=== PATIENT | female | born 1990 | race Caucasian/White ===

== ENCOUNTER 2019-05-28 13:26 | Inpatient (IN) | payer SELFPAY ==
[2019-05-28 13:34] VITALS: BP 106/69; PULSE 70; RESP 17; TEMP 36.4; O2SAT 98; BMI 28.1
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
[2019-05-28 14:06] LABS: Basophils % 0.5 %; Eosinophils # 0.1 10^3/uL (0.0-0.8); Eosinophils % 0.6 %; Hematocrit 43.9 % (37.0-47.0); Hemoglobin 14.1 g/dL (11.5-15.3); Lymphocytes # 2.4 10^3/uL (0.8-4.8); Lymphocytes % 27.4 %; Mean Corpuscular HGB Conc 32.1 g/dL (30.0-36.0); Mean Corpuscular Hemoglobin 30.7 pg (28.0-34.0); Mean Corpuscular Volume 95.6 fL (81-99); Mean Platelet Volume 10.5 fL (7.4-10.4); Monocytes # 0.5 10^3/uL (0.2-0.9); Monocytes % 5.8 %; Neutrophils # 5.6 10^3/uL (1.8-7.7); Neutrophils % 65.2 %; Nucleated Red Blood Cells % 0 %; Platelet Count 300 10^3/cmm (130-400); Red Blood Count 4.59 10^6/uL (4.1-5.3); Red Cell Distribution Width 12.8 % (12.1-15.1); White Blood Count 8.6 10^3/uL (4.0-10.0)
[2019-05-28 14:36] LABS: Alanine Aminotransferase 15 U/L (0-33); Albumin Level 4.3 g/dL (3.5-5.2); Alkaline Phosphatase 72 IU/L (35-105); Aspartate Amino Transferase 14 U/L (0-32); Blood Urea Nitrogen 10 mg/dL (6-20); Calcium 9.6 mg/dL (8.5-10.5); Carbon Dioxide 24 mmol/L (22-29); Chloride 102 mmol/L (98-107); Globulin 2.9 g/dL (1.3-4.6); Glomerular Filtration Rate 98.9 mL/min (90-130); Glucose 91 mg/dL (65-115); Osmolality Calculated 278 mOsm/kg (285-295); Sodium 136 mmol/L (136-145); Thyroid Stimulating Hormone 0.72 uIU/mL (0.27-4.20); Total Bilirubin 0.3 mg/dL (0.15-1.2); Total Protein 7.2 g/dL (6.6-8.7)
[2019-05-28 14:59] LABS: Acetaminophen < 5.0 ug/mL (10-30); Alcohol Level < 10 mg/dL (0-10); Salicylate < 0.3 mg/dL (3-10)
[2019-05-28 15:07] VITALS: BP 104/70; PULSE 59; RESP 16; O2SAT 99
[2019-05-28 15:17] LABS: Add Urine Microscopic? NO
[2019-05-28 15:32] LABS: Urine Appearance Clear (CLEAR); Urine Color Yellow (Yellow); pH Urine 6 (5-7)
[2019-05-28 15:33] LABS: Bilirubin Urine Neg (NEGATIVE); Blood Urine Neg (Negative); Glucose Urine UA Norm (Normal); HCG Qualitative Urine. Negative (Negative); Ketones Urine Negative (Negative); Leukocyte Esterase Urine Negative (Negative); Nitrate Urine Negative (Negative); Protein Urine Neg (Negative); Urobilinogen Urine Norm (Negative)
[2019-05-28 15:40] LABS: Amphetamines Screen Urine Negative (Negative); Barbiturates Screen Urine Negative (Negative); Benzodiazepines Screen Urine Negative (Negative); Cocaine Screen Urine Negative (Negative); Opiate Screen Urine Negative (Negative); PCP Screen Urine Negative (Negative); THC Screen Urine Positive (Negative)
[2019-05-28 15:49] VITALS: BP 98/62; PULSE 67; RESP 18; TEMP 37; O2SAT 99
[2019-05-28] MEDS: hyDROXYzine 25 mg Capsule 50 MG PO (19:14)
[2019-05-28 20:40] VITALS: BP 96/55; PULSE 60; RESP 17; TEMP 36.8; O2SAT 95
[2019-05-29] MEDS: nicotine 2 mg Gum BUCCAL ×2 (00:23→08:25)
[2019-05-29 06:00] VITALS: BP 88/51; PULSE 62; RESP 16; TEMP 36.9; O2SAT 98
[2019-05-29] MEDS: risperiDONE 2 mg Tablet PO (09:22)
[2019-05-29] MEDS: escitalopram 10 mg Tablet PO (09:22)
[2019-05-29] MEDS: hyDROXYzine 25 mg Capsule 50 MG PO (10:33)
--- NOTE | 2019-05-29 10:33 | PC.NURSE ---
PRN VISTARIL VISTARIL 50MG PO PER PT C/O ANXIETY. WILL CONTINUE TO MONITOR FOR MEDICATION EFFECTIVENESS.
--- NOTE | 2019-05-29 11:30 | PC.NURSE ---
PRN VISTARIL FOLLOW UP MEDICATION EFFECTIVE, NO FURTHER C/O ANXIETY.
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
[2019-05-29 13:30] VITALS: BP 102/62; PULSE 74; RESP 18; TEMP 36.6; O2SAT 99
[2019-05-29] MEDS: BuSPIRONE 5 mg Tablet PO ×2 (15:18→21:11)
[2019-05-29 21:06] VITALS: BP 95/52; PULSE 64; RESP 20; TEMP 37; O2SAT 98
[2019-05-29] MEDS: risperiDONE 2 mg Tablet 3 MG PO (21:11)
--- NOTE | 2019-05-29 21:12 | PC.NURSE ---
Pt given scheduled Buspar and risperdal.
[2019-05-30 06:00] VITALS: BP 96/55; PULSE 63; RESP 22; TEMP 36.6; O2SAT 97
[2019-05-30] MEDS: hyDROXYzine 25 mg Capsule 50 MG PO ×2 (06:11→08:51)
--- NOTE | 2019-05-30 06:13 | PC.NURSE ---
pt given hydroxizine for anxiety concerning my boyfriend at this time per pt request.
[2019-05-30] MEDS: escitalopram 10 mg Tablet 20 MG PO (08:22)
[2019-05-30] MEDS: BuSPIRONE 5 mg Tablet PO (08:22)
--- NOTE | 2019-05-30 08:51 | PC.NURSE ---
PRN VISTARIL VISTARIL 50MG PO PER PATIENT C/O ANXIETY. WILL CONTINUE TO MONITOR FOR MEDICATION EFFECTIVENESS.
--- NOTE | 2019-05-30 09:50 | PC.NURSE ---
PRN VISTARIL FOLLOW UP MEDICATION EFFECTIVE. NO FURTHER C/O ANXIETY.
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
[2019-05-30 12:45] VITALS: BP 91/52; PULSE 61; RESP 18; TEMP 37.1; O2SAT 98
[2019-05-30 14:06] LABS: HIV 1 & 2 Antibody Non-Reactive (Non-Reactiv); HIV 1 & 2 Antigen Non-Reactive (Non-Reactiv)
[2019-05-30] MEDS: LORazepam 0.5 mg Tablet PO ×2 (14:34→20:18)
[2019-05-30] MEDS: nicotine 2 mg Gum BUCCAL ×2 (14:50→19:19)
--- NOTE | 2019-05-30 19:22 | PC.NURSE ---
pt given nicorette gum per request.
[2019-05-30] MEDS: risperiDONE 2 mg Tablet 4 MG PO (20:18)
--- NOTE | 2019-05-30 20:30 | PC.NURSE ---
PT GIVEN SCHEDULED ATIVAN AND RISPERDAL AT 2018.
[2019-05-30 21:14] VITALS: BP 118/74; PULSE 96; RESP 22; TEMP 36.6; O2SAT 98
[2019-05-30 22:05] LABS: Rapid Plasma Reagin Syphilis Nonreactive (Nonreactive)
[2019-05-31 06:00] VITALS: BP 96/60; PULSE 63; RESP 17; TEMP 36.9; O2SAT 97
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
[2019-05-31] MEDS: escitalopram 10 mg Tablet 20 MG PO (08:47)
[2019-05-31] MEDS: LORazepam 0.5 mg Tablet PO ×2 (08:47→16:24)
[2019-05-31] MEDS: nicotine 2 mg Gum BUCCAL (13:04)
[2019-05-31] MEDS: hyDROXYzine 25 mg Capsule 50 MG PO (13:04)
--- NOTE | 2019-05-31 13:05 | PC.NURSE ---
PRN VISTARIL VISTARIL 50MG PO PER PATIENT C/O ANXIETY. WILL CONTINUE TO MONITOR FOR MEDICATION EFFECTIVENESS.
[2019-05-31 14:00] VITALS: BP 82/48; PULSE 68; RESP 16; TEMP 36.9; O2SAT 98
--- NOTE | 2019-05-31 14:00 | PC.NURSE ---
PRN VISTARIL FOLLOW UP MEDICATION EFFECTIVE. NO FURTHER C/O ANXIETY.
[2019-05-31 20:00] VITALS: BP 84/56; PULSE 78; RESP 17; TEMP 36.4; O2SAT 96
[2019-05-31] MEDS: risperiDONE 2 mg Tablet 4 MG PO (20:53)
[2019-06-01 06:00] VITALS: BP 91/59; PULSE 72; RESP 18; TEMP 36.6; O2SAT 98
[2019-06-01] MEDS: escitalopram 10 mg Tablet 20 MG PO (08:22)
[2019-06-01] MEDS: LORazepam 0.5 mg Tablet PO (08:23)
[2019-06-01] MEDS: nicotine 2 mg Gum BUCCAL ×2 (08:28→13:18)
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
[2019-06-01] MEDS: hyDROXYzine 25 mg Capsule 50 MG PO ×2 (12:15→18:47)
[2019-06-01 14:00] VITALS: BP 102/66; PULSE 77; RESP 20; TEMP 37; O2SAT 99
[2019-06-01 15:20] VITALS: BP 111/73; PULSE 77; RESP 20; TEMP 37; O2SAT 99
[2019-06-01 20:25] VITALS: BP 134/78; PULSE 74; RESP 17; TEMP 36.6; O2SAT 97
[2019-06-01] MEDS: prazosin 1 mg Capsule PO (20:41)
[2019-06-01] MEDS: risperiDONE 2 mg Tablet 4 MG PO (20:41)
[2019-06-02 06:00] VITALS: BP 134/78; PULSE 74; RESP 17; TEMP 36.6; O2SAT 97
[2019-06-02 06:26] VITALS: BP 101/65; PULSE 71; RESP 16; TEMP 36.7; O2SAT 97
[2019-06-02] MEDS: nicotine 2 mg Gum BUCCAL (07:26)
[2019-06-02] MEDS: escitalopram 10 mg Tablet 20 MG PO (08:30)
--- NOTE | 2019-06-02 13:01 | PC.NURSE ---
PRN VISTARIL 50 MG GIVEN PO PER PT C/O ANXIETY. PT TEARFUL AT THE NURSES STATION. TOOK MEDICATION WITHOUT INCIDENT. WILL CONT TO MONITOR.
[2019-06-02] MEDS: hyDROXYzine 25 mg Capsule 50 MG PO (13:06)
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
[2019-06-02 14:00] VITALS: BP 105/69; PULSE 68; RESP 20; TEMP 36.6; O2SAT 100
[2019-06-02] MEDS: OLANZapine ODT 5 MG TABLET PO (17:41)
--- NOTE | 2019-06-02 17:44 | PC.NURSE ---
PT. NOTE: GAVE 5MG ZYPREXA FOR AGITATION, ANXIETY.
[2019-06-02] MEDS: miconazole 2% vaginal cream 45 gm 1 APPFUL VAGINAL (20:53)
[2019-06-02] MEDS: risperiDONE 2 mg Tablet 4 MG PO (20:53)
[2019-06-02] MEDS: ondansetron 4 MG Tablet PO (20:53)
[2019-06-02] MEDS: prazosin 1 mg Capsule PO (20:53)
--- NOTE | 2019-06-02 20:53 | PC.NURSE ---
Addendum entered by Silvia Howell LPN 06/03/19 00:19: LATE ENTRY PRN ZOFRAN FOLLOW-UP @ 2153 PT RESTING IN BED W/EYES CLOSED RESPIRATIONS EVEN AND UNLABORED. WILL CONTINUE TO MONITOR. Original Note: PRN ZOFRAN PT GIVEN ZOFRAN 4MG FOR C/O OF NAUSEA. WILL MONITOR FOR MEDICATION EFFECTIVENESS.
[2019-06-02 22:00] VITALS: BP 108/72; PULSE 70; RESP 18; TEMP 36.8; O2SAT 99
[2019-06-03 06:00] VITALS: BP 105/65; PULSE 65; RESP 16; TEMP 36.9; O2SAT 97
[2019-06-03] MEDS: acetaminophen 325 mg Tablet 650 MG PO (08:22)
[2019-06-03] MEDS: escitalopram 10 mg Tablet 20 MG PO (08:23)
[2019-06-03] MEDS: LORazepam 0.5 mg Tablet PO (08:23)
[2019-06-03] MEDS: nicotine 2 mg Gum BUCCAL ×2 (12:21→14:49)
[2019-06-03 12:44] VITALS: BP 110/70; PULSE 68; RESP 18; TEMP 36.7; O2SAT 98
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
[2019-06-03] MEDS: OLANZapine ODT 5 MG TABLET PO ×2 (14:29→20:58)
--- NOTE | 2019-06-03 14:29 | PC.NURSE ---
Addendum entered by Leigh Mansfield LPN 06/03/19 15:14: PRN MED EFFECTIVE NO FURTHER C/O AGITATION/ANXIETY Original Note: PRN ZYPREXA ZYDIS 5 MG GIVEN PO PER PT C/O AGITATION/ANXIETY. PT MED SEEKING, REQUESTING MEDICATIONS OFTEN. NO OUTWARD S/S OF AGITATION/ANXIETY NOTED CURRENTLY. PT IN DAY ROOM WATCHING TV. WILL CONT TO MONITOR.
[2019-06-03] MEDS: prazosin 1 mg Capsule PO (20:58)
[2019-06-03] MEDS: miconazole 2% vaginal cream 45 gm 1 APPFUL VAGINAL (20:58)
[2019-06-03] MEDS: risperiDONE 2 mg Tablet 4 MG PO (20:58)
[2019-06-03 22:00] VITALS: BP 98/63; PULSE 66; RESP 18; TEMP 36.6; O2SAT 99
--- NOTE | 2019-06-03 23:17 | PC.NURSE ---
PRN ZYPREXA PT IN [place] PACING AND BECOMING AGITATED & ANXIOUS. ZYPREXA ZYDIS 5 MG SUBLINGUAL ADMINISTERED. WILL MONITOR FOR MEDICATION EFFECTIVENESS.
[2019-06-04 06:00] VITALS: BP 100/66; PULSE 60; RESP 17; TEMP 36.8; O2SAT 97
[2019-06-04] MEDS: escitalopram 10 mg Tablet 20 MG PO (08:04)
[2019-06-04] MEDS: LORazepam 0.5 mg Tablet PO (08:04)
[2019-06-04] MEDS: nicotine 2 mg Gum BUCCAL ×2 (09:53→18:35)
[2019-06-04] MEDS: LORazepam 0.5 mg Tablet 0.25 MG PO (13:11)
[2019-06-04 14:00] VITALS: BP 108/70; RESP 18
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
[2019-06-04] MEDS: trazodone 50 mg Tablet PO (21:04)
[2019-06-04] MEDS: risperiDONE 2 mg Tablet 4 MG PO (21:04)
[2019-06-04] MEDS: miconazole 2% vaginal cream 45 gm 1 APPFUL VAGINAL (21:04)
[2019-06-04] MEDS: prazosin 1 mg Capsule PO (21:05)
[2019-06-04 21:29] VITALS: BP 109/71; PULSE 78; RESP 20; TEMP 37.2; O2SAT 97
--- NOTE | 2019-06-04 21:29 | PC.NURSE ---
Pt given HS meds monostat, minipress, risperdal and prn trazodone at 2103.
[2019-06-05 06:00] VITALS: BP 109/64; PULSE 72; RESP 16; TEMP 37.2; O2SAT 97
[2019-06-05] MEDS: LORazepam 0.5 mg Tablet PO (08:21)
[2019-06-05] MEDS: escitalopram 10 mg Tablet 20 MG PO (08:21)
[2019-06-05] MEDS: nicotine 2 mg Gum BUCCAL ×2 (08:22→13:03)
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
[2019-06-05 14:00] VITALS: BP 137/76; PULSE 101; RESP 20; TEMP 36.4; O2SAT 95
--- NOTE | 2019-06-05 14:02 | PC.SOCIAL ---
patient is very concerned about losing her identity and what to do about it. A call was made to her friend. she is assisting. She was given a number for the [place] office of general passenger agent for guidance. It was also stated that she could first start with the police if she wants to get the steps to know how to deal with the situation. It was suggested to patient that she could go get another license, another certificate and her card cancelled if she has a credit card. It was suggested that she might want to file a police report. Friend, Slime Cole said that she will help patient. Patient does not think she will go back to [facility] because she does not think they will take her back. Patient can go to Slime Cole and she will help her with what to do next. it may be that patient might want to try and go to [facility].
[2019-06-05] MEDS: OLANZapine ODT 5 MG TABLET PO (18:03)
--- NOTE | 2019-06-05 18:03 | PC.NURSE ---
PRN ZYPREXA ZYDIS 5 MG GIVEN PO PER PT C/O AGITATION. PT CONTINUOUSLY ASKS FOR ANY AND ALL PRN MEDICATIONS SHE CAN HAVE. NO OUTWARD S/S OF AGITATION NOTED.
[2019-06-05] MEDS: trazodone 50 mg Tablet PO (20:22)
[2019-06-05] MEDS: risperiDONE 2 mg Tablet 4 MG PO (20:23)
[2019-06-05] MEDS: prazosin 1 mg Capsule PO (20:23)
[2019-06-05] MEDS: miconazole 2% vaginal cream 45 gm 1 APPFUL VAGINAL (20:25)
--- NOTE | 2019-06-05 21:31 | PC.NURSE ---
Pt given scheduled monostat, minipress, risperdal and prn trazodone at 2024.
[2019-06-05 21:52] VITALS: BP 101/65; PULSE 67; RESP 17; TEMP 36.8; O2SAT 98
[2019-06-06] MEDS: OLANZapine ODT 5 MG TABLET PO (02:10)
[2019-06-06 06:00] VITALS: BP 95/59; PULSE 80; RESP 16; TEMP 37.4; O2SAT 97
[2019-06-06] MEDS: nicotine 2 mg Gum BUCCAL ×2 (08:08→12:18)
[2019-06-06] MEDS: escitalopram 10 mg Tablet 20 MG PO (08:08)
[2019-06-06] MEDS: LORazepam 0.5 mg Tablet PO (08:08)
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
[2019-06-06 14:00] VITALS: BP 110/71; PULSE 81; RESP 20; TEMP 36.7; O2SAT 99
[2019-06-06] MEDS: acetaminophen 325 mg Tablet 650 MG PO (15:24)
[2019-06-06] MEDS: prazosin 1 mg Capsule PO (20:07)
[2019-06-06] MEDS: risperiDONE 2 mg Tablet 4 MG PO (20:07)
[2019-06-06] MEDS: LORazepam 0.5 mg Tablet 0.25 MG PO (20:08)
[2019-06-06] MEDS: miconazole 2% vaginal cream 45 gm 1 APPFUL VAGINAL (20:10)
--- NOTE | 2019-06-06 20:10 | PC.NURSE ---
Pt given scheduled minipress, risperdal, monostat and PRN Ativan.
[2019-06-06 22:00] VITALS: BP 110/71; PULSE 69; RESP 18; TEMP 36.7; O2SAT 99
[2019-06-07 06:00] VITALS: BP 124/71; PULSE 68; RESP 18; TEMP 36.9; O2SAT 97
[2019-06-07] MEDS: escitalopram 10 mg Tablet 20 MG PO (08:27)
[2019-06-07] MEDS: nicotine 2 mg Gum BUCCAL ×3 (08:30→16:21)
[2019-06-07 14:00] VITALS: BP 119/75; PULSE 80; RESP 18; TEMP 37.2; O2SAT 96
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
[2019-06-07] MEDS: propranolol 20 mg Tablet 10 MG PO ×2 (18:21→20:14)
[2019-06-07] MEDS: risperiDONE 2 mg Tablet 4 MG PO (20:13)
[2019-06-07] MEDS: miconazole 2% vaginal cream 45 gm 1 APPFUL VAGINAL (20:17)
[2019-06-07 21:38] VITALS: BP 111/73; PULSE 69; RESP 18; TEMP 36.8; O2SAT 96
[2019-06-08 06:00] VITALS: BP 98/62; PULSE 71; RESP 16; TEMP 36.9; O2SAT 98
[2019-06-08] MEDS: propranolol 20 mg Tablet 10 MG PO ×3 (08:50→20:43)
[2019-06-08] MEDS: escitalopram 10 mg Tablet 20 MG PO (08:51)
[2019-06-08] MEDS: nicotine 2 mg Gum BUCCAL (08:51)
[2019-06-08 13:11] VITALS: BP 123/71; PULSE 72; RESP 18; TEMP 37.1; O2SAT 95
[2019-06-08] MEDS: acetaminophen 325 mg Tablet 650 MG PO ×2 (14:44→20:44)
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
[2019-06-08 20:28] VITALS: BP 100/65; PULSE 62; RESP 18; TEMP 36.8; O2SAT 97
[2019-06-08] MEDS: miconazole 2% vaginal cream 45 gm 1 APPFUL VAGINAL (20:45)
--- NOTE | 2019-06-09 05:48 | PC.NURSE ---
RISPERBREEZY PT REFUSED 2100 RISPERONE.
[2019-06-09 06:00] VITALS: BP 100/65; PULSE 56; RESP 18; TEMP 36.8; O2SAT 97
[2019-06-09] MEDS: ARIPiprazole 10 mg Tablet PO (09:06)
[2019-06-09] MEDS: escitalopram 10 mg Tablet 20 MG PO (09:07)
[2019-06-09] MEDS: propranolol 20 mg Tablet 10 MG PO (09:07)
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
[2019-06-09 09:44] VITALS: BP 100/65; PULSE 56; RESP 18; TEMP 36.8; O2SAT 97
== END 2019-06-09 11:10 | disposition home or self-care (01) | DRG 885 ==
LOC: ER 17:05 → NP 17:06
PROVIDERS: Psychiatry & Neurology Psychiatry; Admitting Provider Psychiatry & Neurology Psychiatry; Emergency Provider Family Medicine; Visit Provider Psychiatry & Neurology Psychiatry
DX: F23 Brief psychotic disorder (principal); F32.3 Major depressive disorder, single episode, severe with psychotic features; Z59.0 Homelessness; F12.20 Cannabis dependence, uncomplicated; F17.210 Nicotine dependence, cigarettes, uncomplicated; F43.10 Post-traumatic stress disorder, unspecified; F41.9 Anxiety disorder, unspecified
CPT/HCPCS: 12345; 36415; 80053; 80306; 80307; 81003; 81025; 84443; 85025; 86592; 87806; 99284; A9270; Q0162

== ENCOUNTER 2019-07-14 19:57 | Inpatient (IN) | payer SELFPAY ==
[2019-07-14 19:58] VITALS: BP 132/78; PULSE 82; RESP 16; TEMP 36.6; O2SAT 99; BMI 34.8
--- NOTE | 2019-07-14 19:59 | W.ED.PSYCH ---
HPI - Psych General: Chief Complaint: Psychiatric Symptoms Stated Complaint: SI Time Seen by Provider: 07/14/19 19:58 History of Present Illness: HPI Narrative: Loren is a nice 29-year-old female who is a transfer from [facility] for admission to the psychiatric unit for suicidal ideation. Her notes from that visit and her evaluation by Dr. Melgar will be scanned into this chart. Please see those notes for specifics. Patient has no complaints here. EMS reports vital signs are stable and the patient has been cooperative. Patient states that she is still suicidal. Review of Systems Const: Denies: fever(s), chills, body aches, fatigue, malaise or diaphoresis Eyes: Denies: change in vision, blurry vision, blind spots or photophobia ENMT: Denies: throat pain, odynophagia, hoarseness, swelling of lips/tongue, ear or mastoid pain, ear discharge, change in hearing or nasal discharge Card: Denies: chest pain, palpitations, irregular heart rhythm, edema, lightheadedness, syncope, pre-syncope, dyspnea on exertion or orthopnea Resp: Denies: dyspnea, productive cough, non-productive cough, wheezing, hemoptysis or chest congestion GI: Denies: abdominal pain, nausea, vomiting, hematemesis, coffee ground emesis, heartburn, diarrhea, constipation, GI cramping, hematochezia or melena : Denies: flank pain, dysuria, urinary frequency, urinary urgency or hematuria Musc: Denies: neck pain, back pain, extremity pain, extremity swelling, joint pain, joint swelling, joint redness, joint warmth or joint stiffness Skin/Breast: Denies: rash, pruritus, erythema, skin tenderness or jaundice Neuro: Denies: headache(s), numbness in extremities, weakness in extremities, sensory changes, lack of coordination, difficulty walking, dizziness, vertigo, confusion or Slurred speech present Neto/Lymph: Denies: easy bruising, easy bleeding, petechiae, purpura or enlarged lymph nodes All/Imm: Denies: urticaria, throat swelling, tongue swelling, facial swelling or acute wheezing PFSH ED PFSH: Social History Smoking and tobacco status: current every day smoker Current gender identity: Female Physical Exam Const: COMMON NORMALS: no acute distress, patient oriented x3, no limitations, healthy appearing and well nourished GENERAL APPEARANCE: cooperative, well kempt and well developed HENMT: COMMON NORMALS: normocephalic, atraumatic, hearing grossly normal bilaterally, external ears normal, EAC's normal, Normal external nose present and moist oral mucous membranes HEAD & SCALP: normocephalic and atraumatic NOSE: Normal external nose present and Normal nares present EXTERNAL EAR: Yes external ears normal EXTERNAL AUDITORY CANAL: EAC's normal MOUTH: Normal oral and palatal mucosa present, lip normal and tongue normal Eye: COMMON NORMALS: Equal, round and reactive pupils present, EOMs intact bilaterally, conjunctivae normal and no scleral icterus GENERAL EYE: appearance normal, both eyes and all related structures ALIGNMENT: Yes alignment normal PERIORBITAL: periorbital findings normal EYELID: eyelids normal CONJUNCTIVA: Yes conjunctivae normal SCLERA: sclerae normal PUPIL: Yes Equal, round and reactive pupils present Neck/C-Spine: COMMON NORMALS: full ROM, no lymphadenopathy, supple, no meningeal signs and no JVD GENERAL: Yes normal visual inspection and Yes trachea midline Chest: COMMONS NORMALS: normal inspection of the chest and normal palpation of entire chest wall Resp: COMMON NORMALS: normal respiratory effort, No retractions, No use of accessory muscles and clear to auscultation bilaterally EFFORT & INSPECTION: Yes able to speak in complete sentences and Yes symmetric chest movement AUSCULTATION: clear to auscultation bilaterally, no crackles, no rales, no rhonchi and no wheezes Cardio: COMMON NORMALS: no JVD, regular rate, regular rhythm, S1 normal heart sound present, S2 normal heart sound present, No gallops present (Cardio), No clicks present (Cardio), No murmurs present (Cardio) and No rub (Cardio) RATE: regular rate RHYTHM: regular rhythm HEART SOUNDS: S1 normal heart sound present and S2 normal heart sound present GI: COMMON NORMALS: Soft to palpation and No hepatosplenomegaly present PALPATION: Yes Soft to palpation, No Tenderness to palpation present (GI), No Guarding due to palpation present (GI), No Rigid due to palpation, Yes No hepatosplenomegaly present, No Hernia present, No Palpable mass present and No Pulsatile mass present : COMMON NORMALS: Yes no CVA tenderness BLADDER/KIDNEY EXAM: Yes no CVA tenderness EXTERNAL FEMALE EXAM: No Hernia present Back/Pelvis: COMMON NORMALS: no CVA tenderness, thoracic and lumbar spine normal to inspection, no thoracic nor lumbar tenderness and thoraco-lumbar ROM normal Extremity: COMMON NORMALS: normal to inspection, full ROM, capillary refill normal, no joint enlargement, no clubbing, cyanosis or edema and no calf tenderness Neuro: COMMON NORMALS: patient oriented x3, CN's II-XII intact bilaterally, moves all extremities, no focal motor deficits and no sensory deficits noted MENINGEAL SIGNS: Yes no meningeal signs SPEECH: speech normal Psych: COMMON NORMALS: mental status grossly normal, Normal thought process present, cooperative, normal affect, speech normal and activity/motor behavior normal APPEARANCE: Yes well kempt SPEECH: Yes normal speech THOUGHT PROCESS: Normal thought process present Skin: COMMON NORMALS: no rashes or lesions noted, turgor normal, no jaundice, no petechiae and no mottling GENERAL SKIN EXAM: no rashes or lesions noted and turgor normal MDM - Psych MDM Narrative: Medical decision making narrative: Patient's EKG and labs from [facility] are normal. Case had previously been reviewed by Dr. Kathleen with Dr. Melgar and I discussed with him if the patient was medically stable he would accept her to the [facility]. We will go ahead and get her admitted. Discharge Plan Discharge Patient Disposition: Admitted As Inpatient Admit Provider: Remy Kathleen Clinical Impression: Suicidal ideation Condition: Stable Discharge Date/Time: 07/14/19 20:19 Coding Level of Care Code ED Airport Operations Manager for Chg Fwd Exam Comprehensive
[2019-07-14 20:16] VITALS: BP 132/78; PULSE 82; RESP 16; TEMP 36.6; O2SAT 99
[2019-07-14 20:22] VITALS: BP 112/77; PULSE 72; RESP 20; TEMP 36.9; O2SAT 94
[2019-07-15] MEDS: OLANZapine 5 mg ODT PO (01:25)
[2019-07-15 06:00] VITALS: BP 96/57; PULSE 56; RESP 16; TEMP 36.6; O2SAT 97
[2019-07-15] MEDS: ARIPiprazole 10 mg Tablet PO (08:14)
[2019-07-15] MEDS: escitalopram 10 mg Tablet 20 MG PO (08:14)
[2019-07-15] MEDS: propranolol 20 mg Tablet 10 MG PO ×3 (08:15→22:13)
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
[2019-07-15] MEDS: nicotine 2 mg Gum BUCCAL ×2 (11:20→17:34)
[2019-07-15 14:00] VITALS: BP 100/64; PULSE 79; RESP 18; TEMP 36.8
[2019-07-15 22:00] VITALS: BP 111/76; PULSE 70; RESP 17; TEMP 36.8; O2SAT 98
[2019-07-15] MEDS: risperiDONE 2 mg Tablet 3 MG PO (22:12)
[2019-07-15] MEDS: trazodone 50 mg Tablet PO (22:12)
[2019-07-16 06:00] VITALS: BP 87/53; PULSE 65; RESP 17; TEMP 36.7; O2SAT 97
[2019-07-16] MEDS: propranolol 20 mg Tablet 10 MG PO ×2 (08:48→14:51)
[2019-07-16] MEDS: escitalopram 10 mg Tablet 20 MG PO (08:48)
[2019-07-16] MEDS: nicotine 2 mg Gum BUCCAL ×2 (08:49→15:37)
[2019-07-16] MEDS: ARIPiprazole 30 mg Tablet 15 MG PO (08:52)
[2019-07-16] MEDS: hyDROXYzine 25 mg Capsule 50 MG PO (12:04)
--- NOTE | 2019-07-16 12:05 | PC.NURSE ---
PRN VISTARIL 50 MG GIVEN PO PER PT C/O STATED ANXIETY. WILL CONT TO MONITOR
--- NOTE | 2019-07-16 13:06 | PM.NPN ---
Subjective NPU Subjective: Interval history: Loren presents this morning reporting that she feels that the changes are going okay. She is fairly anxious about the fact that she has a job that she is trying to keep, but that she is struggling with her mental health and does not know how to approach that; should she try to get out quickly with this hospitalization, or should she stay with the hospitalization and either look for a new job or consider short term disability, or something like that. She report she feels the medication changes have been helpful, but it has been a short period of time. Mental Status Exam MSE Comments: This is an obese, white female, with adequate dress, grooming, and eye contact. No abnormal movements. Cooperative with exam in no acute distress. Speech was decreased rate and volume. Mood described as anxious and depressed; affect congruent. Thought process, organized. Thought content: patient denied any suicidal or homicidal ideation, there were no delusions reported or noted, she denied any auditory or visual hallucinations. Attention, concentration, and memory appeared intact but none were formally tested. She is alert and oriented times three. Insight and judgment are good. Vitals/I&O/Wt Last Vital Signs Temp 98.0 F 07/16/19 19:59 Pulse 70 07/16/19 19:59 Resp 17 07/16/19 19:59 BP 102/69 07/16/19 19:59 Pulse Ox 96 07/16/19 19:59 07/16/19 07/16/19 07/17/19 14:59 22:59 06:59 Intake Total 360 / 360 Balance 360 / 360 Weight last 48 hrs Weight 89.018 kg A&P Additional A&P Information (1) Suicidal ideation: (2) Acute psychosis: (3) Depression: (4) Acute anxiety: (5) Posttraumatic stress disorder: This is a 29 year old, white female, with depression, and a history of trauma, with post-traumatic stress disorder, who presents for continued addressing of her medications, and connection with ongoing outpatient services. Continue current medication except increase Abilify, increase Propranolol, and discontinue Risperdal. Encourage individual, group, and milieu therapy. Continue q 15-minute checks for safety. Assist with ongoing services after discharge. Involuntary Hold Information 96 Hour Hold: 96 Hour Involuntary Admission: No Attestations NPU Medical Necessity Statement*: Inpatient hospitalization is medically necessary, and the clinically appropriate intervention at this time. We will monitor medications, and make adjustments, as indicated. Likely length of stay 2-4 days. Coding Level of Care Code Acute Grievance Coordinator for Gian Kaur
[2019-07-16 14:00] VITALS: BP 144/89; PULSE 18; RESP 18; TEMP 36.3
[2019-07-16 19:59] VITALS: BP 102/69; PULSE 70; RESP 17; TEMP 36.7; O2SAT 96
[2019-07-16] MEDS: propranolol 20 mg Tablet PO (20:32)
[2019-07-16] MEDS: trazodone 50 mg Tablet PO (20:32)
[2019-07-17] MEDS: hyDROXYzine 25 mg Capsule 50 MG PO (04:03)
[2019-07-17 06:00] VITALS: BP 102/67; PULSE 62; RESP 17; TEMP 36.5; O2SAT 97
[2019-07-17] MEDS: propranolol 20 mg Tablet PO ×3 (08:25→21:17)
[2019-07-17] MEDS: ARIPiprazole 30 mg Tablet 15 MG PO (08:25)
[2019-07-17] MEDS: escitalopram 10 mg Tablet 20 MG PO (08:25)
[2019-07-17] MEDS: nicotine 2 mg Gum BUCCAL ×2 (08:26→15:05)
--- NOTE | 2019-07-17 13:20 | P.PN_ITS ---
Subjective NPU Subjective: Interval history: Loren continued to do some soul searching in relation to what she needs to do from the standpoint of what her next move should be overall. She is very focused on how to manage her life outside of the hospital. She is very worried that her anxiety will get in the way of her being successful. We discussed the risks benefits and alternatives of increasing the Abilify and she understood and agreed to proceed as is documented in this note. She discussed her desire to discharge sooner rather than later we agreed that given her voluntary status that there are no grounds to keep her longer than she desires so we discussed the possibility of discharge tomorrow morning. Mental Status Exam MSE Comments: This is an obese, white female, with adequate dress, grooming, and eye contact. No abnormal movements. Cooperative with exam in no acute distress. Speech was decreased rate and volume. Mood described as anxious and less depressed; affect congruent. Thought process, organized. Thought content: patient denied any suicidal or homicidal ideation, there were no delusions reported or noted, she denied any auditory or visual hallucinations. Attention, concentration, and memory appeared intact but none were formally tested. She is alert and oriented times three. Insight and judgment are good. Vitals/I&O/Wt Last Vital Signs Temp 97.7 F 07/17/19 06:00 Pulse 62 07/17/19 06:00 Resp 17 07/17/19 06:00 BP 102/67 07/17/19 06:00 Pulse Ox 97 07/17/19 06:00 A&P Additional A&P Information (1) Suicidal ideation: (2) Acute psychosis: (3) Depression: (4) Acute anxiety: (5) Posttraumatic stress disorder: This is a 29 year old, white female, with depression, and a history of trauma, with post-traumatic stress disorder, who presents for continued addressing of her medications, and connection with ongoing outpatient services. Continue current medication except increase Abilify. Encourage individual, group, and milieu therapy. Continue q 15-minute checks for safety. Assist with ongoing services after discharge. Involuntary Hold Information 96 Hour Hold: 96 Hour Involuntary Admission: No Attestations NPU Medical Necessity Statement*: Inpatient hospitalization is medically necessary, and the clinically appropriate intervention at this time. We will monitor medications, and make adjustments, as indicated. Likely length of stay 1-3 days. Coding Level of Care Code Acute Water Reuse Program Manager for Chg Fwd
[2019-07-17 13:32] VITALS: BP 94/52; PULSE 59; RESP 18; TEMP 36.4; O2SAT 96
[2019-07-17] MEDS: ARIPiprazole 10 mg Tablet 5 MG PO (18:44)
[2019-07-17] MEDS: OLANZapine 5 mg ODT PO (21:16)
[2019-07-17 21:43] VITALS: BP 104/67; PULSE 68; RESP 16; TEMP 37.2; O2SAT 97
--- NOTE | 2019-07-17 21:59 | PC.NURSE ---
PT GIVEN SCHEDULED INDERAL AND PRN ZYPREXA PER PT REQUEST.
[2019-07-18 05:45] VITALS: BP 90/60; PULSE 114; RESP 17; TEMP 37.1; O2SAT 97
[2019-07-18] MEDS: nicotine 2 mg Gum BUCCAL ×2 (06:02→09:22)
[2019-07-18] MEDS: escitalopram 10 mg Tablet 20 MG PO (09:14)
[2019-07-18] MEDS: ARIPiprazole 10 mg Tablet 20 MG PO (09:15)
[2019-07-18] MEDS: propranolol 20 mg Tablet PO (09:15)
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
[2019-07-18 11:46] VITALS: BP 90/60; PULSE 114; RESP 17; TEMP 37.1; O2SAT 97
--- NOTE | 2019-07-18 12:50 | PC.RESP ---
SMOKING CESSATION INFORMATION SENT TO PATIENT.
== END 2019-07-18 12:18 | disposition home or self-care (01) | DRG 885 ==
LOC: ER 20:15 → NP 20:17
PROVIDERS: Admitting Provider Psychiatry & Neurology Psychiatry; Visit Provider Psychiatry & Neurology Psychiatry
DX: F33.3 Major depressive disorder, recurrent, severe with psychotic symptoms (principal); R45.851 Suicidal ideations; Z59.0 Homelessness; F12.90 Cannabis use, unspecified, uncomplicated; F17.210 Nicotine dependence, cigarettes, uncomplicated; F41.9 Anxiety disorder, unspecified; F43.11 Post-traumatic stress disorder, acute
CPT/HCPCS: 12345; 99281

== ENCOUNTER → 2019-09-21 10:36 | Outpatient (BNVA) | payer OTHER, SELFPAY | PROVIDERS: Visit Provider Nurse Practitioner Psychiatric/Mental Health | DX: F20.9 Schizophrenia, unspecified (principal); F43.10 Post-traumatic stress disorder, unspecified; Z79.899 Other long term (current) drug therapy | CPT/HCPCS: 80061; 83036 ==

== ENCOUNTER 2022-06-01 12:53 | Inpatient (IN) | payer MEDICAID, SELFPAY ==
[2019-09-22 16:05] VITALS: BP 94/63; BMI 34.7
--- NOTE | 2022-06-01 13:35 | W.ED.PSYCHS ---
HPI - Psych General: Chief Complaint: Psychiatric Symptoms Stated Complaint: si Time Seen by Provider: 06/01/22 12:56 Source: patient Mode of arrival: ambulatory History of Present Illness: 31-year-old female presents to the emergency room with complaints of suicidal ideation. Stating she is having a panic attack she has a history of schizo affective disorder she tells me she was previously taking medications and also been using marijuana but she is not taking any medications now to stop the marijuana for the last 30 days. She is using marijuana for anxiety. MD complaint: suicidal ideation Onset (ago): day(s) Duration: constant History of same: Yes Relieving factors: none Exacerbating factors: none Associated symptoms: Reports other (Headache) Treatments prior to arrival: none If self harm: admits thoughts of self harm and has plan Review of Systems Const: Denies: fever(s), chills, body aches, change in appetite, fatigue or malaise ENMT: Denies: throat pain, ear or mastoid pain, nasal discharge or nasal congestion Card: Denies: chest pain, edema, dyspnea on exertion or orthopnea Resp: Denies: dyspnea, productive cough or non-productive cough GI: Denies: abdominal pain, nausea, vomiting, hematemesis, coffee ground emesis, diarrhea, constipation, bloating, hematochezia or melena : Denies: flank pain, difficulty voiding, dysuria, urinary frequency or urinary urgency Skin/Breast: Denies: rash or pruritus [facility] ED PFSH: Medical History (Updated 06/01/22 @ 14:43 by Gary Pascual DO) Amphetamine use disorder, mild, in early remission Cannabis use disorder Nicotine use disorder Psychiatric care Social History (Updated 07/25/19 @ 09:51 by Jannette Thomas LPN) Smoking and tobacco status: current every day smoker cigars Cigar details: 10 cheyennes per day Quit status (tobacco): considering quitting Second hand smoke exposure: No Current gender identity: Female Physical Exam Const: GENERAL APPEARANCE: cooperative and comfortable ORIENTATION/CONSCIOUSNESS: Yes awake HENMT: COMMON NORMALS: normocephalic, atraumatic and hearing grossly normal bilaterally HEAD & SCALP: normocephalic and atraumatic Resp: COMMON NORMALS: normal respiratory effort, No retractions, No use of accessory muscles and clear to auscultation bilaterally AUSCULTATION: clear to auscultation bilaterally Cardio: COMMON NORMALS: regular rate, regular rhythm and No murmurs present (Cardio) RATE: regular rate RHYTHM: regular rhythm Extremity: COMMON NORMALS: normal to inspection, capillary refill normal, no clubbing, cyanosis or edema, no calf tenderness and no pedal edema Psych: MOOD & AFFECT: Yes anxious MDM - Psych Medical Decision Making 96-hour hold for suicidal ideation. Discussed with Dr. Reyes orders written Medical Records I reviewed the patient's medical records. Lab Data I reviewed the patient's lab results. 06/01/22 13:30 06/01/22 13:30 Laboratory Results WBC 7.8 10^3/uL (4.0-10.0) 06/01/22 13:30 RBC 4.91 10^6/uL (4.1-5.3) 06/01/22 13:30 Hgb 14.7 g/dL (11.5-15.3) 06/01/22 13:30 Hct 45.3 % (37.0-47.0) 06/01/22 13:30 MCV 92.3 fl (81-99) 06/01/22 13:30 MCH 29.9 pg (28.0-34.0) 06/01/22 13:30 MCHC 32.5 g/dL (30.0-36.0) 06/01/22 13:30 RDW 12.7 % (12.1-15.1) 06/01/22 13:30 Plt Count 241 10^3/cmm (130-400) 06/01/22 13:30 MPV 10.6 fL (7.4-10.4) H 06/01/22 13:30 Neut % (Auto) 61.2 % 06/01/22 13:30 Lymph % (Auto) 31.0 % 06/01/22 13:30 Williamson % (Auto) 7.1 % 06/01/22 13:30 Eos % (Auto) 0.1 % 06/01/22 13:30 Baso % (Auto) 0.5 % 06/01/22 13:30 Neut # (Auto) 4.74 10^3/uL (1.8-7.7) 06/01/22 13:30 Lymph # (Auto) 2.4 10^3/uL (0.8-4.8) 06/01/22 13:30 Williamson # (Auto) 0.6 10^3/uL (0.2-0.9) 06/01/22 13:30 Eos # (Auto) 0.0 10^3/uL (0.0-0.8) 06/01/22 13:30 Baso # (Auto) 0.0 10^3/uL (0.0-0.1) 06/01/22 13:30 Nucleated RBC % (auto) 0 % 06/01/22 13:30 Nucleated RBCs # 0.0 /100WBC 06/01/22 13:30 Sodium 137 mmol/L (136-145) 06/01/22 13:30 Potassium 3.8 mmol/L (3.5-5.1) 06/01/22 13:30 Chloride 105 mmol/L (98-107) 06/01/22 13:30 Carbon Dioxide 21 mmol/L (22-29) L 06/01/22 13:30 Anion Gap 14.8 (5-19) 06/01/22 13:30 BUN 10 mg/dL (6-20) 06/01/22 13:30 Creatinine 0.7 mg/dL (0.5-0.9) 06/01/22 13:30 GFR Calculation 97.0 mL/min (90-130) 06/01/22 13:30 Glucose 92 mg/dL (65-115) 06/01/22 13:30 Calculated Osmolality 283 mOsm/kg (285-295) L 06/01/22 13:30 Calcium 9.1 mg/dL (8.5-10.5) 06/01/22 13:30 Total Bilirubin 0.5 mg/dL (0.15-1.2) 06/01/22 13:30 AST 17 U/L (0-32) 06/01/22 13:30 ALT 18 U/L (0-33) 06/01/22 13:30 Alkaline Phosphatase 58 U/L (35-105) 06/01/22 13:30 Total Protein 7.3 g/dL (6.6-8.7) 06/01/22 13:30 Albumin 4.6 g/dL (3.5-5.2) 06/01/22 13:30 Globulin 2.7 g/dL (1.3-4.6) 06/01/22 13:30 HCG, Qual Negative (Negative) 06/01/22 13:30 Salicylates < 0.3 mg/dL (3-10) L 06/01/22 13:30 Acetaminophen < 5.0 ug/mL (10-30) L 06/01/22 13:30 Discharge Plan Discharge Patient Disposition: Admitted As Inpatient Clinical Impression: Suicidal ideation, Acute anxiety Condition: Stable Coding Level of Care Code ED Embedded Systems Software Developer for Gian Kaur
[2022-06-01 13:47] LABS: Basophils % 0.5 %; Eosinophils % 0.1 %; Hematocrit 45.3 % (37.0-47.0); Hemoglobin 14.7 g/dL (11.5-15.3); Lymphocytes # 2.4 10^3/uL (0.8-4.8); Mean Corpuscular HGB Conc 32.5 g/dL (30.0-36.0); Mean Corpuscular Hemoglobin 29.9 pg (28.0-34.0); Mean Corpuscular Volume 92.3 fl (81-99); Mean Platelet Volume 10.6 fL (7.4-10.4); Monocytes # 0.6 10^3/uL (0.2-0.9); Monocytes % 7.1 %; Neutrophils # 4.74 10^3/uL (1.8-7.7); Neutrophils % 61.2 %; Nucleated Red Blood Cells % 0 %; Platelet Count 241 10^3/cmm (130-400); Red Blood Count 4.91 10^6/uL (4.1-5.3); Red Cell Distribution Width 12.7 % (12.1-15.1); White Blood Count 7.8 10^3/uL (4.0-10.0)
[2022-06-01 14:03] LABS: Alanine Aminotransferase 18 U/L (0-33); Albumin Level 4.6 g/dL (3.5-5.2); Alkaline Phosphatase 58 U/L (35-105); Anion Gap 14.8 (5-19); Aspartate Amino Transferase 17 U/L (0-32); Blood Urea Nitrogen 10 mg/dL (6-20); Calcium 9.1 mg/dL (8.5-10.5); Carbon Dioxide 21 mmol/L (22-29); Chloride 105 mmol/L (98-107); Globulin 2.7 g/dL (1.3-4.6); Glucose 92 mg/dL (65-115); Osmolality Calculated 283 mOsm/kg (285-295); Potassium 3.8 mmol/L (3.5-5.1); Sodium 137 mmol/L (136-145); Total Bilirubin 0.5 mg/dL (0.15-1.2); Total Protein 7.3 g/dL (6.6-8.7)
[2022-06-01 14:06] LABS: Acetaminophen < 5.0 ug/mL (10-30); Salicylate < 0.3 mg/dL (3-10)
[2022-06-01 14:07] LABS: HCG, Serum Qual Negative (Negative)
[2022-06-01] MEDS: LORazepam 2 mg Tablet PO (14:07)
--- NOTE | 2022-06-01 17:12 | PC.NURSE ---
96 hr rights reviewed with patient @[id number]. All questions answered, and copy left at bedside with patient.
[2022-06-01] MEDS: nicotine 2 mg Gum BUCCAL ×2 (18:34→21:34)
[2022-06-01 18:51] LABS: Add Urine Microscopic? YES; Bilirubin Urine Neg (Negative); Blood Urine 2+ (Negative); Glucose Urine UA Norm (Normal); Ketones Urine 1+ (Negative); Leukocyte Esterase Urine Negative (Negative); Nitrate Urine Negative (Negative); Protein Urine Neg (Negative); Urine Appearance Clear (CLEAR); Urine Color Yellow (Yellow); Urobilinogen Urine Norm (Negative); pH Urine 6 (5-7)
[2022-06-01 18:52] LABS: Add Urine Culture? No; Bacteria Urine TRACE /hpf; Mucus Urine TRACE /hpf; RBC Urine 0-4 /hpf (0-2); Squamous Epithelial Cell Urine 0-4 /hpf (0-5)
[2022-06-01 19:14] LABS: Amphetamines Screen Urine Negative (Negative); Barbiturates Screen Urine Negative (Negative); Benzodiazepines Screen Urine Positive (Negative); Cocaine Screen Urine Negative (Negative); Opiate Screen Urine Negative (Negative); PCP Screen Urine Negative (Negative); THC Screen Urine Positive (Negative)
[2022-06-01 20:06] VITALS: BP 112/73; PULSE 89; RESP 18; TEMP 36.5; O2SAT 97
[2022-06-01] MEDS: hyDROXYzine 25 mg Capsule 50 MG PO (20:25)
[2022-06-01] MEDS: acetaminophen 325 mg Tablet 650 MG PO (21:34)
[2022-06-01] MEDS: docusate sodium 100 mg Capsule PO (21:34)
[2022-06-01] MEDS: simethicone 80 mg Chew PO (21:34)
[2022-06-02 06:00] VITALS: BP 101/65; PULSE 69; RESP 18; TEMP 36.6; O2SAT 97
[2022-06-02] MEDS: hyDROXYzine 25 mg Capsule 50 MG PO ×3 (08:02→19:50)
--- NOTE | 2022-06-02 08:03 | PC.NURSE ---
PRN VISTARIL 50 MG GIVEN PO PER PT REQUEST OF SOMETHING FOR ANXIETY ALTHOUGH PATIENT IS TOTALLY SMILING AND LAUGHING WITH STAFF, VERY PLEASANT IN CONVERSATION
[2022-06-02] MEDS: nicotine 21 mg Patch 1 PATCH TRANSDERMA (09:08)
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
[2022-06-02] MEDS: escitalopram 10 mg Tablet PO (12:56)
[2022-06-02] MEDS: metroNIDAZOLE 500 MG Tablet PO ×2 (12:56→19:44)
--- NOTE | 2022-06-02 13:58 | PC.NURSE ---
Patient anxious, rating anxiety 8/10. Reason for anxiety: patient states that she is wound up, can't calm down. Patient has been coloring, but she stated that coloring was working her up because the colors of the drawing represented different aspects of her life. Administered 50mg Hydroxyzine PO. Patient to go to her room and try to rest. Will continue to monitor.
[2022-06-02 14:00] VITALS: BP 128/68; PULSE 84; RESP 16; TEMP 36.8; O2SAT 95
[2022-06-02] MEDS: polyethylene glycol 3350 Pkt 17 gm PO (15:51)
--- NOTE | 2022-06-02 15:51 | PC.NURSE ---
Patient requested something to help her have a bowel movement. Last BM was 05/30/22. Patient encouraged to increase water intake, choose fiber-dense foods for meals, and walk some laps in the unit. Gave patient 17G of polyethylene glycol. Will continue to monitor.
[2022-06-02] MEDS: lurasidone 20 mg Tablet PO (19:44)
[2022-06-02] MEDS: OLANZapine 5 mg ODT PO (21:19)
[2022-06-02 21:54] VITALS: BP 127/82; PULSE 81; RESP 18; TEMP 37; O2SAT 97
[2022-06-03] MEDS: escitalopram 10 mg Tablet PO (09:06)
[2022-06-03] MEDS: metroNIDAZOLE 500 MG Tablet PO ×2 (09:06→21:00)
[2022-06-03] MEDS: nicotine 21 mg Patch 1 PATCH TRANSDERMA (09:06)
[2022-06-03] MEDS: hyDROXYzine 25 mg Capsule 50 MG PO ×2 (12:32→21:00)
[2022-06-03 14:00] VITALS: BP 127/80; PULSE 76; RESP 20; TEMP 36.8; O2SAT 98
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
[2022-06-03] MEDS: lurasidone 20 mg Tablet 40 MG PO (17:35)
[2022-06-03] MEDS: acetaminophen 325 mg Tablet 650 MG PO (21:00)
--- NOTE | 2022-06-03 21:00 | PC.NURSE ---
PRN vistaril for anxiety and tylenol for pain given as ordered per pt request.
[2022-06-03 22:00] VITALS: BP 112/69; PULSE 68; RESP 17; TEMP 36.8; O2SAT 100
[2022-06-03] MEDS: trazodone 50 mg Tablet PO (22:29)
--- NOTE | 2022-06-03 22:30 | PC.NURSE ---
PRN trazodone for sleep given as ordered per pt request.
[2022-06-04 06:00] VITALS: BP 103/63; PULSE 67; RESP 16; TEMP 36.6; O2SAT 97
[2022-06-04] MEDS: escitalopram 10 mg Tablet PO ×2 (09:47→16:27)
[2022-06-04] MEDS: metroNIDAZOLE 500 MG Tablet PO ×2 (09:47→20:53)
[2022-06-04] MEDS: nicotine 21 mg Patch 1 PATCH TRANSDERMA (09:50)
[2022-06-04] MEDS: hyDROXYzine 25 mg Capsule 50 MG PO (09:51)
[2022-06-04] MEDS: OLANZapine 5 mg ODT PO (12:10)
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
[2022-06-04 14:00] VITALS: BP 125/75; PULSE 63; RESP 18; TEMP 36.7; O2SAT 98
[2022-06-04] MEDS: lurasidone 20 mg Tablet 40 MG PO (17:40)
[2022-06-04] MEDS: trazodone 50 mg Tablet PO (20:53)
--- NOTE | 2022-06-04 21:00 | PC.NURSE ---
PRN trazodone given for sleep per pt request.
[2022-06-04 22:00] VITALS: BP 122/71; PULSE 68; RESP 17; TEMP 36.6; O2SAT 98
[2022-06-05 06:00] VITALS: RESP 14
[2022-06-05] MEDS: escitalopram 10 mg Tablet 20 MG PO (07:58)
[2022-06-05] MEDS: metroNIDAZOLE 500 MG Tablet PO (07:58)
[2022-06-05] MEDS: nicotine 21 mg Patch 1 PATCH TRANSDERMA (07:59)
[2022-06-05] MEDS: OLANZapine 5 mg ODT PO (07:59)
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
[2022-06-05 11:41] VITALS: BP 127/87; PULSE 98; RESP 14; TEMP 36.4; O2SAT 98
== END 2022-06-05 13:31 | disposition home or self-care (01) | DRG 885 ==
LOC: ER 14:43 → NP 14:53
PROVIDERS: Admitting Provider Psychiatry & Neurology Psychiatry; Emergency Provider Family Medicine; Visit Provider Psychiatry & Neurology Psychiatry
DX: F25.0 Schizoaffective disorder, bipolar type (principal); R45.851 Suicidal ideations; F41.0 Panic disorder [episodic paroxysmal anxiety]; Z91.148 Patient's other noncompliance with medication regimen for other reason; F43.10 Post-traumatic stress disorder, unspecified; F15.91 Other stimulant use, unspecified, in remission; F12.90 Cannabis use, unspecified, uncomplicated; F17.210 Nicotine dependence, cigarettes, uncomplicated
CPT/HCPCS: 36415; 80053; 80306; 80307; 81001; 84703; 85025; 97150; 97165; 99285